=== PATIENT | male | born 1970 | race Asian ===

== ENCOUNTER 2020-06-20 16:44 | Emergency (ER) | payer SELFPAY ==
[~2020-06-20] VITALS: Ht 160 cm; Wt 78.0 kg
[2020-06-20] MEDS ORDERED: dexamethasone sod phosphate 10mg/ml inj IM STA (19:49)
[2020-06-20] MEDS ORDERED: gabapentin 400mg capsule PO ONE (19:50)
[2020-06-20] MEDS ORDERED: gabapentin 400mg capsule PO SCH (19:50)
[2020-06-20] MEDS ORDERED: GABA-530 PO (20:09)
[2020-06-20 20:14] VITALS: BP 130/80
== END 2020-06-20 20:13 | disposition home or self-care (01) ==
LOC: ER 16:46
DX: M25.552 Pain in left hip (principal); M79.605 Pain in left leg; R20.0 Anesthesia of skin; R53.1 Weakness; R20.2 Paresthesia of skin; Z79.899 Other long term (current) drug therapy
CPT/HCPCS: 96372; 99283; J1100